=== PATIENT | male | born 1980 | race Caucasian/White ===

== ENCOUNTER 2018-06-17 21:25 | Emergency (ER) | payer SELFPAY ==
[~2018-06-17] VITALS: Ht 167.6 cm; Wt 86.6 kg
[2018-06-17 21:30] VITALS: Ht 167.6 cm; Wt 86.6 kg
[2018-06-17 23:12] LABS: BASOPHIL % 0 % (0-2); PLATELET COUNT 414 x10^3mcL (130-400); RED CELL DISTRIBUTION WIDTH 15.6 % (11.5-14.5)
[2018-06-17 23:18] LABS: CALCIUM 8.9 mg/dL (8.5-10.1); CARBON DIOXIDE 24.1 mmol/L (21-32); CHLORIDE SERUM 107 mmol/L (98-107); CREATININE SERUM 1.2 mg/dL (0.7-1.3); GFR1 > 60 mL/min; GLUCOSE SERUM 208 mg/dL (74-106); POTASSIUM SERUM 4.6 mmol/L (3.5-5.1); SODIUM SERUM 143 mmol/L (136-145)
[2018-06-17 23:21] VITALS: BP 128/64
[2018-06-17 23:23] LABS: ALBUMIN 3.5 g/dL (3.4-5.0); ALKALINE PHOSPHATASE 65 U/L (46-116); ALT/SGPT 13 U/L (16-63); AST/SGOT 12 U/L (15-37); BILIRUBIN TOTAL 0.2 mg/dL (0.20-1.00)
[2018-06-18 01:13] LABS: AMPHETAMINE QUAL UR NONE DETECTED (See below)
== END 2018-06-18 01:33 | disposition home or self-care (01) ==
LOC: ED 21:25
PROVIDERS: Emergency Medicine
DX: T78.1XXA Other adverse food reactions, not elsewhere classified, initial encounter (principal); T62.2X1A Toxic effect of other ingested (parts of) plant(s), accidental (unintentional), initial encounter; Y92.89 Other specified places as the place of occurrence of the external cause; F41.9 Anxiety disorder, unspecified; D50.9 Iron deficiency anemia, unspecified; Z86.61 Personal history of infections of the central nervous system; Z91.010 Allergy to peanuts
CPT/HCPCS: J1200; J2930; J3010; J3490; J7030; Q0162